=== PATIENT | female | born 1945 | race Hispanic/Latino ===

== ENCOUNTER → 2020-01-31 | Outpatient (CLI) | payer MEDICARE ==
[~2020-01-31] MED LIST: ANUSOL-HC25 MG RC; CIPRO; CIPRO500 MG PO; CLARITIN-D 241 EACH PO; CYCLOBENZAPRINE5 MG PO; DITROPAN XL5 MG PO; FENOFIBRATE145 MG PO; LEVAQUIN500 MG PO; NEURONTIN100 MG PO; NYSTATIN1 EAC1; Z.0.CELEBREX200 MG PO; Z.0.ENABLEX15 MG PO; Z.0.METOPROLOL SUCC5 PO; Z.0.TRILIPIX135 MG PO; Z.0.ZOLOFT100 MG PO; Z.2.METFORMIN HCL500 PO; ZITHROMAX250 MG; ZOLOFT50 MG PO
--- NOTE | 2020-01-31 15:46 | Diagnostic Imaging Report ---
Exam: CHEST 2 VIEWS Date: 01/31/2020 3:41 PM INDICATION: ^[id number] ^[id number] ^DYSPNEA Comparison: None FINDINGS: Lines/Tubes:None Lungs:Negative for focal consolidation. Prominent interstitial markings are noted. Right perihilar prominence is noted, nonspecific. Pleura:No pleural effusion. No pneumothorax. Heart/Mediastinum:Cardia mediastinal silhouette is enlarged. Central vascular congestion is noted. Trachea projects midline. Thoracic aorta is tortuous. Bones/Soft Tissues: No acute osseous abnormality. Moderate multilevel degenerative changes of the spine are noted. Upper abdomen: Unremarkable. IMPRESSION: 1. Cardiomegaly with central vascular congestion and prominent interstitial markings are concerning for fluid overload/edema. 2. Right perihilar prominence may relate to central congestion however underlying opacity is difficult to exclude. Recommend follow-up chest radiograph after treatment of acute symptoms, if persistent at that time, would consider cross-sectional imaging for further evaluation. Signed by: Sebastian Driver MD on 01/31/2020 3:43 PM
== END ==
LOC: RAD 14:56
PROVIDERS: ATTEND Internal Medicine Critical Care Medicine
DX: R06.00 Dyspnea, unspecified (principal)
CPT/HCPCS: 71046